=== PATIENT | male | born 1955 | race Two or more races ===

== ENCOUNTER 2018-01-17 09:37 | Day surgery (SDC) | payer BC ==
[~2018-01-17] VITALS: Ht 165.1 cm; Wt 63.5 kg
[2018-01-17] VITALS (9 sets, daily range): BP systolic 138–152; BP diastolic 71–94
[~2018-01-17 09:37] MED LIST: ATORVASTATIN CA40 MG ORAL; CARVEDILOL3.125 MG ORAL; CLOPIDOGREL75 MG ORAL; LANTUS SOL100 UNIT/1 SUBQ; LISINOPRIL2.5 MG ORAL; METFORMIN HCL500 M1 ORAL; NOVOLOG100 UNIT/3 SUBQ; Proparacaine 0.5% Opth Soln 15ml LEFT EYE ONE
[2018-01-17] MEDS ORDERED: BSS 500ml btl ONE (09:55)
[2018-01-17] MEDS ORDERED: Pred Forte 1% Opth Susp 1ml ONE (09:55)
[2018-01-17] MEDS ORDERED: Kenalog-40 1ml Vial ONE (09:55)
[2018-01-17] MEDS ORDERED: Tetracaine 0.5% Opth 4ml Soln ONE (09:56)
[2018-01-17] MEDS ORDERED: Dexamethasone 4mg/ml vial ONE (09:56)
[2018-01-17] MEDS ORDERED: Bupivacaine 0.75% 30ml vial INJ ONE (09:56)
[2018-01-17] MEDS ORDERED: Maxitrol Opth Oint 3.5gm ONE (09:56)
[2018-01-17] MEDS ORDERED: Lidocaine 2% MPF 5ml Vial INJ ONE (09:57)
[2018-01-17] MEDS ORDERED: EPINEPHrine 1mg/1ml Amp ONE (09:57)
[2018-01-17] MEDS ORDERED: Goniosol 2.5% Opth Soln - 15ml ONE (09:57)
[2018-01-17] MEDS ORDERED: BSS 15ml BTL ONE (09:57)
[2018-01-17] MEDS ORDERED: Povidone-Iodine 5% opth solution ONE (09:58)
[2018-01-17] MEDS ORDERED: Sodium Hyaluronate 10 mg/ml 0.85ml ONE (09:58)
[2018-01-17] MEDS ORDERED: Acetylcholine Injection (OR) ONE (09:59)
[2018-01-17] MEDS ORDERED: Tropicamide 1% Opth 15ml Soln ONE (10:30)
[2018-01-17] MEDS ORDERED: Phenylephrine 2.5% Op 2ml Soln ONE (10:30)
[2018-01-17] MEDS ORDERED: Cyclopentolate 1% Opth Sol 2ml ONE (10:30)
[2018-01-17] MEDS ORDERED: Proparacaine 0.5% Opth Soln 15ml ONE (10:31)
[2018-01-17] MEDS: Cyclopentolate 1% Opth Sol 2ml LEFT EYE SCH ×3 (11:14→11:28)
[2018-01-17] MEDS: Tropicamide 1% Opth 15ml Soln LEFT EYE SCH ×3 (11:15→11:29)
[2018-01-17] MEDS: Phenylephrine 2.5% Op 2ml Soln LEFT EYE SCH ×3 (11:15→11:28)
[2018-01-17] MEDS ORDERED: DOCUSATE SODIU100 M2 ORAL (11:39)
[2018-01-17] MEDS ORDERED: VITAMIN D400 INTLU ORAL (11:39)
[2018-01-17] MEDS ORDERED: POTASSIUM CHLO20 ME2 ORAL (11:39)
[2018-01-17] MEDS ORDERED: SENNA8.6 M2 PO (11:39)
[2018-01-17] MEDS ORDERED: CEPHALEXIN500 M1 ORAL (11:39)
[2018-01-17] MEDS ORDERED: FLONASE ALLERG9.9 ML NS (11:39)
[2018-01-17] MEDS ORDERED: GABAPENTIN300 MG ORAL (11:39)
[2018-01-17] MEDS ORDERED: CILOSTAZOL100 MG PO (11:39)
[2018-01-17] MEDS ORDERED: HUMALOG KW200 UNIT/1 SQ (11:39)
[2018-01-17 11:54] LABS: ANION GAP 8 mmol/L (5-15); BLOOD UREA NITROGEN 29 mg/dL (7-18); CALCIUM 8.5 MG/DL (8.5-10.1); CARBON DIOXIDE 22 MMOL/L (21-32); CHLORIDE 107 MMOL/L (98-107); CREATININE 1.4 MG/DL (0.55-1.30); POTASSIUM 5.1 MMOL/L (3.5-5.1); SODIUM 137 MMOL/L (136-145)
[2018-01-17] MEDS ORDERED: Propofol 200mg/20ml IV ONE (12:30)
--- NOTE | 2018-01-17 12:34 | Pre-Procedure Note/Attestation ---
Pre-Procedure Note/Attestation Complete Prior to Procedure Planned Procedure: left Procedure Narrative: PDR/TRD/VH OS plan for PPV Indications for Procedure Pre-Operative Diagnosis: PDR/TRD/VH OS plan for PPV Attestation I attest that I discussed the nature of the procedure; its benefits; risks and complications; and alternatives (and the risks and benefits of such alternatives ), prior to the procedure, with the patient (or the patient's legal customer account representative). I attest that, if there was a reasonable possibility of needing a blood transfusion, the patient (or the patient's legal customer account representative) was given the [facility] standardized written summary, pursuant to the [place] Blood Safety Act ([place] Health and Safety Code # 1645, as amended). I attest that I re-evaluated the patient just prior to the surgery and that there has been no change in the patient's H&P, except as documented below: Dmitry Esparza M.D. Jan 17, 2018 12:34
--- NOTE | 2018-01-17 12:34 | Operative Note - PDOC ---
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 and vitreous hemorrhage, LEFT EYE Cataract, LEFT EYE Procedure: Pars plana vitrectomy, tractional retinal detachment repair, membrane peel, endolaser, air-fluid exchange, infusion of silicone oil (1K centistokes) LEFT EYE Post-op Diagnosis: Same Surgeon: Vilma Anesthesia: local Specimen: none Complications: none Condition: stable Fluids: Min Estimated Blood Loss: minimal Drains: none Implant(s) used?: Yes - Oil Indications for Procedure Indications for the procedure: The patient has vision loss due to proliferative diabetic retinopathy/ tractional retinal detachment (chronic) and presents today for surgery. After review of the risks, benefits, alternative and the patient signed informed consent into the medical chart. Description of Procedure Procedure performed: The patient was met in the pre-operative area where informed consent was reviewed. The operative eye was verified, marked and dilated. The patient was transferred to the operative suite, where cardiopulmonary monitoring was established and peribulbar anesthetic was administered without complications. The eye was prepped and draped in sterile ophthalmic fashion. Under microscope visualization the 23 gauge infusion line was placed 4 millimeters inferotemporally. After visualization of the tip in the vitreous cavity, the infusion line was turned on. The superotemporal and superonasal cannulas were placed. Peripheral and core vitrectomy was performed. As the vitreous was cleared the posterior pole was revealed to be elevated with tractional membranes involving the macula. The membranes were peeled and dissected to allow the retina to reattach with forceps and the cutter. The retina relaxed but remained somewhat tented up along the superior arcade. Further peripheral vitrectomy was performed. PRP was applied to the far periphery. Inspection of the periphery revealed no iatrogenic breaks. Air fluid exchange was performed. Silicone oil (1K cS) was infused into the eye. The cannulas were removed. The eye maintained normal intraocular pressure. Subconjunctival vancomycin and dexamethasone were administered. The lid speculum was removed. The eye was cleaned of prep and drape. Atropine drop and Maxitrol ointment was applied. A pressure patch was placed. The patient was turned over to the anesthesia team and transferred in stable condition to the PACU. Dmitry Esparza M.D. Jan 17, 2018 12:34
--- NOTE | 2018-01-17 12:34 | Brief Operative Note ---
Immediate Post Operative Note Operative Note Pre-op Diagnosis: PDR/TRD/VH OS plan for PPV Dmitry Esparza M.D. Jan 17, 2018 12:34
[2018-01-17] MEDS ORDERED: NS Irrig 1000ml ONE ×2 (12:45)
[2018-01-17] MEDS ORDERED: LR 1000ml ONE (12:45)
[2018-01-17] MEDS ORDERED: Sterile Water Irrig 1000ml IRRIG ONE (12:45)
[2018-01-17] MEDS ORDERED: Midazolam 2mg/2ml Inj ONE (12:45)
[2018-01-17] MEDS ORDERED: LR 1000ml 1,000 ML IVLG SCH (13:01)
--- NOTE | 2018-01-17 13:07 | Anethesia Preoperative Eval ---
Anesthesia Pre-op PMH/ROS General Date of Evaluation: Jan 17, 2018 Time of Evaluation: 12:41 Anesthesiologist: Artur ASA Score: ASA 3 Mallampati Score Class I : Soft palate, uvula, fauces, pillars visible Class II: Soft palate, uvula, fauces visible Class III: Soft palate, base of uvula visible Class IV: Only hard plate visible Mallampati Classification: Class II Surgeon: Vilma Diagnosis: Vitreous hemorrhage left eye Surgical Procedure: Vitrectomy, membrane peeling Family History: no anesthesia problems Allergies: Coded Allergies: No Known Allergies (Unverified , 01/17/18) Medications: see eMAR Past Medical History Cardiovascular: Reports: HTN, CAD - Coronary stents, GA, other - PVD s/p amputation Pulmonary: Denies: asthma, COPD, JONATHAN, other Gastrointestinal/Genitourinary: Denies: GERD, CRI, ESRD, other Neurologic/Psychiatric: Denies: dementia, CVA, depression/anxiety, TIA, other Endocrine: Reports: DM - IDDM; Denies: hypothyroidism, steroids, other HEENT: Denies: cataract (L), cataract (R), glaucoma, [place] (L), [place] (R), other PMH Narrative: CAD, GA (coronary stents), PVD (Right LE amputation), HTN, IDDM PSxH Narrative: Coronary stents, right LE amputation Anesthesia Pre-op Phys. Exam Physician Exam Last Vital Signs Date Time Temp Pulse Resp B/P (MAP) Pulse Ox O2 Delivery O2 Flow Rate FiO2 01/17/18 11:16 97.7 100 18 145/90 97 Room Air 97.7 Constitutional: NAD Neurologic: CN 2-12 intact Cardiovascular: RRR, no M/R/G Respiratory: CTA Gastrointestinal: S/NT/ND Airway Exam Mallampati Score: Class II MO: full ROM: full Teeth: intact Anesthesia Pre-op A/P Labs Chemistry Test 01/17/18 11:20 Sodium Level 137 MMOL/L (136-145) Potassium Level 5.1 MMOL/L (3.5-5.1) Chloride Level 107 MMOL/L (98-107) Carbon Dioxide Level 22 MMOL/L (21-32) Anion Gap 8 mmol/L (5-15) Blood Urea Nitrogen 29 mg/dL (7-18) H Creatinine 1.4 MG/DL (0.55-1.30) H Estimat Glomerular Filtration Rate 51.2 mL/min (>60) Glucose Level 272 MG/DL (74-106) H Calcium Level 8.5 MG/DL (8.5-10.1) Studies Pre-op Studies: EKG - NSR Risk Assessment & Plan Assessment: Class 3 patient for vitrectomy Plan: MAC Status Change Before Surgery: No Pre-Antibiotics Drug: None Shaan Siddiqui MD Jan 17, 2018 13:07
--- NOTE | 2018-01-17 13:08 | Immediate Post-Op Evaluation ---
Immediate Post-Op Evalulation Immediate Post-Op Evalulation Procedure: Vitrectomy, membrane peeling left eye Date of Evaluation: Jan 17, 2018 Time of Evaluation: 13:57 IV Fluids: 200 Blood Pressure Systolic: 148 Blood Pressure Diastolic: 92 Pulse Rate: 93 Respiratory Rate: 16 O2 Sat by Pulse Oximetry: 99 Temperature (Fahrenheit): 98.6 Pain Score (1-10): 0 Nausea: No Vomiting: No Complications No complication Patient Status: awake, patent, none Hydration Status: adequate Drug: None Shaan Siddiqui MD Jan 17, 2018 13:08
[2018-01-17] MEDS ORDERED: fentaNYL 100 mcg/2 mL IV PRN (13:15)
[2018-01-17] MEDS ORDERED: DiphenhydrAMINE 50mg/ml Inj IVP PRN (13:15)
--- NOTE | 2018-01-17 13:51 | 48 Hour Post Anesthesia Eval ---
Post Anesthesia Evaluation Procedure: Vitrectomy, membrane peeling left eye Date of Evaluation: Jan 17, 2018 Time of Evaluation: 14:30 Blood Pressure Systolic: 147 0: 90 Pulse Rate: 90 Respiratory Rate: 15 O2 Sat by Pulse Oximetry: 98 Airway: patent Nausea: No Vomiting: No Pain Intensity: 0 Hydration Status: adequate Cardiopulmonary Status: Stable Mental Status/LOC: patient returned to baseline Follow-up Care/Observations: As per surgery Post-Anesthesia Complications: No anesthetic complication Follow-up care needed: N/A Shaan Siddiqui MD Jan 17, 2018 13:51
--- NOTE | 2018-01-18 16:41 | Cardiology Report ---
APPROVED REPORT EKG Measurement Heart [id number] Sinus tachycardia with occasional premature ventricular complexes Nonspecific ST and T wave abnormality Abnormal ECG
== END 2018-01-17 15:05 | disposition home or self-care (01) ==
LOC: SUR 09:37
DX: E11.3522 Type 2 diabetes mellitus with proliferative diabetic retinopathy with traction retinal detachment involving the macula, left eye (principal); R00.0 Tachycardia, unspecified; I11.9 Hypertensive heart disease without heart failure; I25.2 Old myocardial infarction; Z79.4 Long term (current) use of insulin; Z95.5 Presence of coronary angioplasty implant and graft; Z89.612 Acquired absence of left leg above knee
CPT/HCPCS: 36415; 67042; 67108; 80048; 82962; 93005; J1100; J2250; J2704; J3370; J3490; J7120; 94003; 94150

== ENCOUNTER 2018-04-11 10:56 | Day surgery (SDC) | payer BC ==
[2018-04-11] VITALS (8 sets, daily range): BP systolic 141–152; BP diastolic 69–93
[~2018-04-11] VITALS: Ht 167.6 cm; Wt 64.4 kg
[~2018-04-11 10:56] MED LIST changes: +BSS 15ml BTL ONE; +CEPHALEXIN500 M1 ORAL; +CILOSTAZOL100 MG PO; +DOCUSATE SODIU100 M2 ORAL; +EPINEPHrine 1mg/1ml Amp ONE; +FLONASE ALLERG9.9 ML NS; +GABAPENTIN300 MG ORAL; +HUMALOG KW200 UNIT/1 SQ; +Maxitrol Opth Oint 3.5gm ONE; +POTASSIUM CHLO20 ME2 ORAL; -Proparacaine 0.5% Opth Soln 15ml LEFT EYE ONE; +Proparacaine 0.5% Opth Soln 15ml RIGHT EYE ONE; +SENNA8.6 M2 PO; +VITAMIN D400 INTLU ORAL
[2018-04-11] MEDS ORDERED: Cyclopentolate 1% Opth Sol 2ml ONE (11:02)
[2018-04-11] MEDS ORDERED: Phenylephrine 2.5% Op 2ml Soln ONE (11:03)
[2018-04-11] MEDS ORDERED: Tropicamide 1% Opth 15ml Soln ONE (11:03)
[2018-04-11] MEDS ORDERED: Proparacaine 0.5% Opth Soln 15ml ONE (11:03)
[2018-04-11] MEDS: Cyclopentolate 1% Opth Sol 2ml RIGHT EYE SCH ×3 (11:35→12:08)
[2018-04-11] MEDS: Tropicamide 1% Opth 15ml Soln RIGHT EYE SCH ×3 (11:35→12:08)
[2018-04-11] MEDS: Phenylephrine 2.5% Op 2ml Soln RIGHT EYE SCH ×3 (11:35→12:08)
[2018-04-11] MEDS ORDERED: LR 1000ml 1,000 ML IVLG SCH (12:44)
--- NOTE | 2018-04-11 12:44 | Anethesia Preoperative Eval ---
Anesthesia Pre-op PMH/ROS General Date of Evaluation: Apr 11, 2018 Time of Evaluation: 12:33 Anesthesiologist: Giselle ASA Score: ASA 3 Mallampati Score Class I : Soft palate, uvula, fauces, pillars visible Class II: Soft palate, uvula, fauces visible Class III: Soft palate, base of uvula visible Class IV: Only hard plate visible Mallampati Classification: Class II Surgeon: Vilma Diagnosis: Vitreous OD Surgical Procedure: Vitrectomy OD Anesthesia History: none Family History: no anesthesia problems Allergies: Coded Allergies: No Known Allergies (Unverified , 01/17/18) Medications: see eMAR Past Medical History Cardiovascular: Reports: HTN, CAD - CHF, Stent, [place] - Angina, other - PVD, HL Gastrointestinal/Genitourinary: Reports: ESRD - MWF Neurologic/Psychiatric: Reports: depression/anxiety Endocrine: Reports: DM HEENT: Reports: glaucoma PSxH Narrative: R AKA, Cholecystectomy, Stent Anesthesia Pre-op Phys. Exam Physician Exam Last Vital Signs Date Time Temp Pulse Resp B/P (MAP) Pulse Ox O2 Delivery O2 Flow Rate FiO2 04/11/18 11:58 98.1 81 18 143/83 95 Room Air 98.1 Constitutional: NAD Neurologic: CN 2-12 intact Cardiovascular: RRR Respiratory: CTA Gastrointestinal: S/NT/ND Airway Exam Mallampati Score: Class II MO: limited ROM: limited Teeth: intact Anesthesia Pre-op A/P Risk Assessment & Plan Assessment: ASA 3 Plan: GA Status Change Before Surgery: No Alex Desai MD Apr 11, 2018 12:44
[2018-04-11] MEDS ORDERED: LORazepam Inj 2mg/ml 1ml IV PRN (12:45)
[2018-04-11] MEDS ORDERED: oxyCODONE HCL/Acetaminophen 5/325mg ORAL PRN (12:45)
[2018-04-11] MEDS ORDERED: HYDROcodone/Acetamin 7.5/325 tab ORAL PRN (12:45)
[2018-04-11] MEDS ORDERED: Hydromorphone 0.5mg/0.5ml inj IVP PRN (12:45)
[2018-04-11] MEDS ORDERED: DiphenhydrAMINE 50mg/ml Inj IVP PRN (12:45)
[2018-04-11] MEDS ORDERED: Midazolam 2mg/2ml Inj IVP PRN (12:45)
[2018-04-11] MEDS ORDERED: Ketorolac 30mg Inj IV PRN ×2 (12:45)
[2018-04-11] MEDS ORDERED: Atropine Inj 1mg/10ml Syr IV PRN (12:45)
[2018-04-11] MEDS ORDERED: Labetalol 5mg/ml 20ml vial IV PRN (12:45)
[2018-04-11] MEDS ORDERED: Metoclopramide 10mg/2ml Inj IVP PRN (12:45)
[2018-04-11] MEDS ORDERED: Norco 5mg/325mg tab ORAL PRN (12:45)
[2018-04-11] MEDS ORDERED: fentaNYL 100 mcg/2 mL IV PRN (12:45)
[2018-04-11] MEDS ORDERED: Lidocaine 1% MPF 10mg/ml 5ml ONE (13:00)
[2018-04-11] MEDS ORDERED: Sterile Water Irrig 1000ml IRRIG ONE (13:00)
[2018-04-11] MEDS ORDERED: LR 1000ml ONE (13:00)
[2018-04-11] MEDS ORDERED: Propofol 200mg/20ml IV ONE (13:00)
[2018-04-11] MEDS ORDERED: NS Irrig 1000ml ONE (13:00)
--- NOTE | 2018-04-11 13:07 | Pre-Procedure Note/Attestation ---
Pre-Procedure Note/Attestation Complete Prior to Procedure Planned Procedure: right Procedure Narrative: PDR/VH scheduled for PPV/EL/SF6 OD Indications for Procedure Pre-Operative Diagnosis: PDR/VH/Cataract OD Attestation I attest that I discussed the nature of the procedure; its benefits; risks and complications; and alternatives (and the risks and benefits of such alternatives ), prior to the procedure, with the patient (or the patient's legal guest services representative). I attest that, if there was a reasonable possibility of needing a blood transfusion, the patient (or the patient's legal guest services representative) was given the [facility] standardized written summary, pursuant to the [place] Blood Safety Act ([place] Health and Safety Code # 1645, as amended). I attest that I re-evaluated the patient just prior to the surgery and that there has been no change in the patient's H&P, except as documented below: Dmitry Esparza M.D., MD Apr 11, 2018 13:07
--- NOTE | 2018-04-11 13:08 | Operative Note - PDOC ---
Operative Note Operative Note Chief Complaint: Vision loss OD Pre-op Diagnosis: PDR/VH/Cataract OD Procedure: PPV/EL/AFE/SF6 OD Post-op Diagnosis: Same Surgeon: Vilma Anesthesia: local Specimen: none Complications: none Condition: stable Estimated Blood Loss: minimal Drains: none Implant(s) used?: No Indications for Procedure Location: [facility] [place] Pre-operative Diagnosis: Proliferative diabetic retinopathy with dense non-clearing vitreous hemorrhage, RIGHT EYE Cataract (Dense central PSC) , RIGHT EYE Post-operative Diagnosis: Same Procedure: Pars plana vitrectomy, endolaser, air-fluid exchange, infusion of SF6 gas (15%), RIGHT EYE Surgeon: Dmitry Esparza M.D. Anesthesia: PB Complications: None Indications for the procedure: The patient has vision loss due to PDR/NCVH/Cataract OD and presents today for surgery. After review of the risks, benefits, alternative and the patient signed informed consent into the medical chart. Description of Procedure Procedure performed: The patient was met in the pre-operative area where informed consent was reviewed. The operative eye was verified, marked and dilated. The patient was transferred to the operative suite, where cardiopulmonary monitoring was established and peribulbar anesthetic was administered without complications. The eye was prepped and draped in sterile ophthalmic fashion. Under microscope visualization the 23 gauge infusion line was placed 4 millimeters inferotemporally. After visualization of the tip in the vitreous cavity, the infusion line was turned on. The superotemporal and superonasal cannulas were placed. Peripheral and core vitrectomy was performed. As the vitreous hemorrhage was cleared the posterior pole was visualized. There was gliosis at the optic nerve that was trimmed; no TRD was noted. Of note, the cataract was fairly dense (PSC). Further peripheral vitrectomy was performed. PRP was applied to the far periphery. Inspection of the periphery revealed no iatrogenic breaks. Air fluid exchange was performed. SF6 gas was infused into the eye. The cannulas were removed. The eye maintained normal intraocular pressure. Subconjunctival vancomycin and dexamethasone were administered. The lid speculum was removed. The eye was cleaned of prep and drape. Atropine drop and Maxitrol ointment was applied. A pressure patch was placed. The patient was turned over to the anesthesia team and transferred in stable condition to the PACU. Dmitry Esparza M.D., MD Apr 11, 2018 13:08
[2018-04-11] MEDS ORDERED: BSS 500ml btl ONE (13:09)
--- NOTE | 2018-04-11 13:10 | Immediate Post-Op Evaluation ---
Immediate Post-Op Evalulation Immediate Post-Op Evalulation Procedure: Vitrectomy OD Date of Evaluation: Apr 11, 2018 Time of Evaluation: 13:52 IV Fluids: 200 NS Blood Products: 0 Estimated Blood Loss: 1 Urinary Output: 0 Blood Pressure Systolic: 152 Blood Pressure Diastolic: 93 Pulse Rate: 78 Respiratory Rate: 16 O2 Sat by Pulse Oximetry: 98 Temperature (Fahrenheit): 97.9 Pain Score (1-10): 1 Nausea: No Vomiting: No Complications 0 Patient Status: awake, reacts, patent, none Hydration Status: adequate Alex Desai MD Apr 11, 2018 13:10
--- NOTE | 2018-04-11 13:11 | 48 Hour Post Anesthesia Eval ---
Post Anesthesia Evaluation Procedure: Vitrectomy OD Date of Evaluation: Apr 11, 2018 Time of Evaluation: 15:34 Blood Pressure Systolic: 154 0: 97 Pulse Rate: 76 Respiratory Rate: 18 Temperature (Fahrenheit): 98.2 O2 Sat by Pulse Oximetry: 97 Airway: patent Nausea: No Vomiting: No Pain Intensity: 1 Hydration Status: adequate Cardiopulmonary Status: Stable Mental Status/LOC: patient returned to baseline Follow-up Care/Observations: 0 Post-Anesthesia Complications: 0 Follow-up care needed: ready to discharge Alex Desai MD Apr 11, 2018 13:11
== END 2018-04-11 14:45 | disposition home or self-care (01) ==
LOC: SUR 10:56
DX: E11.3591 Type 2 diabetes mellitus with proliferative diabetic retinopathy without macular edema, right eye (principal); H43.11 Vitreous hemorrhage, right eye; I50.9 Heart failure, unspecified; I25.2 Old myocardial infarction; I13.2 Hypertensive heart and chronic kidney disease with heart failure and with stage 5 chronic kidney disease, or end stage renal disease; E11.22 Type 2 diabetes mellitus with diabetic chronic kidney disease; N18.6 End stage renal disease; Z90.49 Acquired absence of other specified parts of digestive tract; F32.9 Major depressive disorder, single episode, unspecified; Q82.8 Other specified congenital malformations of skin
CPT/HCPCS: 67036; 82962; J2250; J2704; J7120; 94003; 94150